=== PATIENT | male | born 1990 | race Two or more races ===

== ENCOUNTER 2023-06-10 10:51 | Outpatient (REF) | payer OTHER, SELFPAY ==
--- NOTE | ~2023-06-10 | XR_ITS ---
EXAMINATION: XR KNEE, RIGHT CLINICAL INFORMATION: Medial pain. COMPARISON: None available. TECHNIQUE: AP, lateral and tunnel views of the right knee are submitted. FINDINGS: No fracture or joint effusion. Alignment is anatomic. Joint spaces are maintained. No abnormal soft tissue calcification. XR/XR knee RT 3V IMPRESSION: Normal right knee.
== END 2023-06-10 10:52 | disposition home or self-care (01) ==
LOC: HO.HHCX 10:51
PROVIDERS: Visit Provider Internal Medicine
DX: M25.561 Pain in right knee (principal)
CPT/HCPCS: 73562

== ENCOUNTER 2023-07-20 12:03 | Outpatient (REF) | payer OTHER, SELFPAY ==
[2023-07-20 13:14] LABS: MANUAL DIFF FLAG NO
[2023-07-20 13:30] LABS: Basophils Percent Auto 0.5 % (0-2); Eosinophils Absolute Auto 0.1 X10*3/uL (0.0-0.4); Eosinophils Percent Auto 1.8 % (0-4); Hematocrit 41.3 % (42.0-52.0); Imm Gran Abs Auto 0.01 X10*3/uL (0.00-0.03); Imm Gran Pct Auto 0.2 % (0.0-0.4); Lymphocytes Absolute Auto 1.9 X10*3/uL (1.2-4.9); Lymphocytes Percent Auto 31.3 % (20-40); Mean Corpuscular HGB Conc 36.3 g/dl (31.0-36.0); Mean Corpuscular Hemoglobin 31.8 pg (27.0-33.0); Mean Corpuscular Volume 87.7 fL (80.0-98.0); Mean Platelet Volume 10.3 fL (9.4-12.4); Monocytes Absolute Auto 0.6 X10*3/uL (0.1-1.2); Monocytes Percent Auto 9.6 % (2-11); Neutrophils Absolute Auto 3.4 x10*3/uL (2.0-8.3); Neutrophils Percent Auto 56.6 % (45-73); Platelet Count 197 X10*3/uL (160-400); Red Blood Count 4.71 X10*6/uL (4.60-5.80)
[2023-07-20 13:58] LABS: Alanine Aminotransferase 17 U/L (0-40); Albumin Level 4.8 g/dL (3.5-5.0); Alkaline Phosphatase 56 U/L (39-117); Anion Gap 12 (12-20); Aspartate Amino Transferase 15 U/L (5-37); Bilirubin Direct 0.1 mg/dL (0.0-0.5); Bilirubin Total 0.5 mg/dL (0.0-1.0); Blood Urea Nitrogen 11 mg/dL (9-16); Calcium 10.1 mg/dL (8.4-10.2); Carbon Dioxide 30 mmol/L (22-29); Chloride 106 mmol/L (96-108); Cholesterol 162 mg/dL (<200); Estimated Glomerular Filt Rate > 60; Glucose Random 92 mg/dL (60-115); HDL Cholesterol 59 mg/dL (>40); LDL Cholesterol Calculated 97 mg/dL (<100); Potassium 4.2 mmol/L (3.3-5.1); Sodium 144 mmol/L (135-145); Total Protein 7.8 g/dL (6.5-8.0); Triglycerides 32 mg/dL (<150)
[2023-07-20 15:26] LABS: CT PCR NOT DETECTED (Not Detect.); NG PCR NOT DETECTED (Not Detect.)
[2023-07-21 04:30] LABS: HIV AB/AG Nonreactive (Nonreactive); HIV Num 1 0.06 S/CO (0.00-0.99); ~HepC Num1 0.13 S/CO (0.00-0.79); ~Hepatitis C Antibody Nonreactive (Nonreactive)
[2023-07-21 11:33] LABS: RPR Rapid Plasma Reagin NON-REACTIVE (NON-REACTIVE)
== END 2023-07-20 12:04 | disposition home or self-care (01) ==
LOC: HO.HHCL 12:03
PROVIDERS: Visit Provider Family Medicine
DX: F81.9 Developmental disorder of scholastic skills, unspecified (principal); Z20.2 Contact with and (suspected) exposure to infections with a predominantly sexual mode of transmission
CPT/HCPCS: 0353U; 36415; 80048; 80061; 80076; 85025; 86592; 86803; 87389

== ENCOUNTER 2023-10-04 11:09 | Outpatient (AMB) | payer MEDICAID, SELFPAY ==
--- NOTE | 2023-10-04 11:12 | A.OFFVIS_ITS ---
Intake Visit Reasons: New Pt - Right Knee Pain Intake Note: Krystian a 32 year old male who presents today with his girlfriend as a new patient for an evaluation of right knee pain. Patient reports his pain has been present since November of 2022, however his pain has increased since June. Denies injury. 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 He was attending PT however this has not been helping. States his pain is located around his kneecap and bruising will appear making his pain worse. He has swelling with activity. Finds very little to temporary relief with topical Diclofenac and Tylenol. Currently he has been out of work since June on FMLA due to current work restrictions. Allergies No Known Allergies Allergy (Verified 10/04/23 11:36) HPI HPI New Pt - Right Knee Pain: Details: 32-year-old male who presents to the office today with his girlfriend for evaluation of right knee pain since November 2022 however his pain worsened since June 2023. He states he has worsening pain around his kneecap and bruising in his knee. He also reports locking in his knee as well as swelling with activities. He has attended physical therapy without benefits. He finds minimal relief with topical diclofenac and Tylenol. He has not had any injury in the past. 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 He is curren anna out of work since June on [place] due to current work restrictions. 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 Review of Systems Const All systems reviewed & are unremarkable except as noted in HPI and below Physical Exam Const General: cooperative, healthy appearing, comfortable, no acute distress, well developed and alert Orientation/consciousness: patient oriented x3 HEENT Head: Yes normal to inspection, Yes normocephalic and Yes atraumatic Eyes General: appearance normal, both eyes and all related structures Resp Effort & Inspection: normal respiratory effort and able to speak in complete sentences Cardio Rate: regular rate Peripheral pulses: Peripheral pulses 2+ throughout GI Palpation (GI): Soft to palpation Skin Lesions: no lesions Rashes: no rashes Neuro General: patient oriented x3 Extrem Other: Right knee: Skin intact, no erythema or joint effusion. Tenderness along the medial joint line. Full ROM with crepitus. Positive Morgan?s. No ligamentous laxity. NVI. Results Reviewed Results Reviewed: Xrays were obtained in the office today and personally reviewed by me of the right knee are negative for acute fracture or dislocations. Assessment & Plan Assessment & Plan (1) Internal derangement of knee: Code(s): M23.90 - Unspecified internal derangement of unspecified knee Category: Medical Qualifiers: Laterality: right Qualified Code(s): M23.91 - Unspecified internal derangement of right knee (2) Right knee pain: Code(s): M25.561 - Pain in right knee Category: Medical Plan Patient was given a genumed knee brace in the office today to help with support. An MRI of the right knee was ordered to further evaluate the meniscus. He will continue to remain out of work untill his follow-up and see us back once the scan is complete. Orders: Orders XR knee LT 2V Today M25.562 - Pain in left knee MR knee RT wo con Today M23.90 - Unspecified internal derangement of unspecified knee, M25.561 - Pain in right knee XR knee RT 1V Today M25.561 - Pain in right knee Patient Instructions: Scribed for Disha Lee PA-C, by Lane Connors medical management specialist, on 10/04/2023 at 11:00 AM EST.? I, Disha Lee PA-C, have personally reviewed and agree with the information entered by the scribe. Coding Level of Care Code New Pt Level 3 (13327) Diagnoses Internal derangement of right knee M23.91 Laterality: right Right knee pain M25.561
== END 2023-10-04 12:50 | disposition home or self-care (01) ==
PROVIDERS: PCP Family Medicine; Visit Provider Physician Assistant
DX: M23.91 Unspecified internal derangement of right knee (principal); M25.561 Pain in right knee
CPT/HCPCS: 99204

== ENCOUNTER 2023-10-04 15:28 | Outpatient (REF) | payer OTHER, SELFPAY ==
--- NOTE | ~2023-10-04 | XR_ITS ---
EXAMINATION: XR KNEE, STANDING BILATERAL AND SUNRISE RIGHT CLINICAL INFORMATION: Pain in right knee, pain in left knee. COMPARISON: 06/10/2023 Right knee. TECHNIQUE: AP standing view of bilateral knees as well as a sunrise view of the right knee. FINDINGS: AP standing view of the right knee and sunrise view of the right knee: Mild narrowing of the medial compartment with minimal medial marginal osteophytes. Patellofemoral joint maintains on the sunrise view of the right knee. AP sunrise view of the left knee: Minimal narrowing of the medial compartment. XR/XR knee RT 1V IMPRESSION: Mild degenerative changes right knee.
--- NOTE | ~2023-10-04 | XR_ITS ---
EXAMINATION: XR KNEE, STANDING BILATERAL AND SUNRISE RIGHT CLINICAL INFORMATION: Pain in right knee, pain in left knee. COMPARISON: 06/10/2023 Right knee. TECHNIQUE: AP standing view of bilateral knees as well as a sunrise view of the right knee. FINDINGS: AP standing view of the right knee and sunrise view of the right knee: Mild narrowing of the medial compartment with minimal medial marginal osteophytes. Patellofemoral joint maintains on the sunrise view of the right knee. AP sunrise view of the left knee: Minimal narrowing of the medial compartment. XR/XR knee LT 2V IMPRESSION: Mild degenerative changes right knee.
== END 2023-10-04 15:29 | disposition home or self-care (01) ==
LOC: HO.HOSX 15:28
PROVIDERS: Visit Provider Physician Assistant
DX: M25.561 Pain in right knee (principal); M23.91 Unspecified internal derangement of right knee; M25.562 Pain in left knee
CPT/HCPCS: 73560; 99212

== ENCOUNTER 2023-10-24 14:08 | Outpatient (AMB) | payer OTHER, SELFPAY ==
--- NOTE | 2023-10-24 14:39 | A.OFFVIS_ITS ---
Intake Visit Reasons: OV- MRI Review RT knee Intake Note: Krystian a 32 year old male who presents today for an MRI review of right knee. Patient reports his symptoms have not changed, he continues to have ongoing pain. States knee brace has helped. Allergies No Known Allergies Allergy (Verified 10/24/23 14:42) Medication List - Last Reconciled 10/24/23 by Disha Lee PA-C acetaminophen 500 mg PO Q6H PRN celecoxib (Celebrex) 200 mg PO BID 30 days diclofenac sodium 1% topical BID HPI HPI OV- MRI Review RT knee: Details: 32-year-old male who returns to the office today for an MRI review of right knee. He states he has no change in his symptoms and continues to have ongoing pain in his knee. His pain is aggravated with movement of his knee. He has been using a knee brace and working on physical therapy with benefits. He finds mild relief with Tylenol. He has no other concerns today. 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 Review of Systems Const All systems reviewed & are unremarkable except as noted in HPI and below Physical Exam Const General: cooperative, healthy appearing, comfortable, no acute distress, well developed and alert Orientation/consciousness: patient oriented x3 HEENT Head: Yes normal to inspection, Yes normocephalic and Yes atraumatic Eyes General: appearance normal, both eyes and all related structures Resp Effort & Inspection: normal respiratory effort and able to speak in complete sentences Cardio Rate: regular rate Peripheral pulses: Peripheral pulses 2+ throughout GI Palpation (GI): Soft to palpation Skin Lesions: no lesions Rashes: no rashes Neuro General: patient oriented x3 Extrem Other: Right knee: Skin intact, no erythema or joint effusion. Tenderness along the medial joint line. Full ROM with crepitus. Positive Morgan?s. No ligamentous laxity. NVI. Results Reviewed Results Reviewed: Assessment & Plan Assessment & Plan (1) Iliotibial band syndrome of right side: Code(s): M76.31 - Iliotibial band syndrome, right leg Category: Medical Plan I did stress the importance of working on physical therapy and taking his anti- inflammatories regularly for the next 3 weeks. I did sent Celebrex to his pharmacy and an order was placed today. He will modify activities as much as possible to avoid irritation to the anterior portion of the knee. He will remain out of work for 4 weeks so that he can successfully work on managing his symptoms while working on physical therapy. He will return in 4 weeks with no restrictions, sooner if needed. Orders: Orders 2 PT Evaluation and Treatment Today M76.31 - Iliotibial band syndrome, right leg Medications: New 2 celecoxib (Celebrex) 200 mg PO BID 60 caps 3RF 30 days Patient Instructions: Scribed for Disha Lee PA-C, by Lane Connors, clinical medical transcriptionist, on 10/24/2023 at 2:15 PM EST.? I, Disha Lee PA-C, have personally reviewed and agree with the information entered by the scribe. Coding Level of Care Code Est Pt Level 3 (13338) Diagnoses Iliotibial band syndrome of right side M76.31
== END 2023-10-24 15:11 | disposition home or self-care (01) ==
PROVIDERS: PCP Family Medicine; Visit Provider Physician Assistant
DX: M76.31 Iliotibial band syndrome, right leg (principal)
CPT/HCPCS: 99213

== ENCOUNTER → 2023-10-24 14:08 | Outpatient (BNVA) | payer OTHER, SELFPAY | PROVIDERS: PCP Family Medicine; Visit Provider Physician Assistant | DX: M76.31 Iliotibial band syndrome, right leg (principal) | CPT/HCPCS: 99212 ==

== ENCOUNTER 2024-02-09 14:05 | Outpatient (AMB) | payer MEDICAID, SELFPAY ==
--- NOTE | 2024-02-09 14:19 | MHC.OFFVIS ---
Vital Signs 02/09/24 14:22 Height 5 ft 11 in Weight 200 lb BMI 27.9 Intake Visit Reasons: OV-Right Knee Pain-Follow up Intake Note: Krystian a 33 year old male who presents today for a follow up of right knee pain. Patient reports having some improvement in his knee pain however he continues to have pain. He was discharged from PT as this was not helping. He continues to do at home exercises. Finds temporary relief with icy hot topical cream. His PCP suggested he discontinue Celebrex due to abdominal pain. Allergies No Known Allergies Allergy (Verified 02/09/24 14:26) Medication List - Last Reconciled 02/09/24 by Disha Lee PA-C acetaminophen 500 mg PO Q6H PRN celecoxib (Celebrex) 200 mg PO BID 30 days diclofenac sodium 1% topical BID HPI HPI OV-Right Knee Pain-Follow up: Details: 33-year-old male who returns to the office today for a follow-up of right knee pain. He states he has improvement however she continues to have pain in her right knee that is aggravated with going upstairs, lying down and standing. He also reports he has popping sensation with applying pressure for too long. He was working with however he was discharged as this was not helping. He continues to work on home exercises for his knee. He finds transient relief with icy hot and hot topical cream. He was seen by his PCP who suggested he discontinue Celebrex as he had abdominal pain. 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 Review of Systems Const All systems reviewed & are unremarkable except as noted in HPI and below Physical Exam Vital Signs: BMI result Body Mass Index 27.9 Const General: cooperative, healthy appearing, comfortable, no acute distress, well developed and alert Orientation/consciousness: patient oriented x3 HEENT Head: Yes normal to inspection, Yes normocephalic and Yes atraumatic Eyes General: appearance normal, both eyes and all related structures Resp Effort & Inspection: normal respiratory effort and able to speak in complete sentences Cardio Rate: regular rate Peripheral pulses: Peripheral pulses 2+ throughout GI Palpation (GI): Soft to palpation Skin Lesions: no lesions Rashes: no rashes Neuro General: patient oriented x3 Extrem Other: Right knee: Skin intact, no erythema or joint effusion. Tenderness along the medial joint line. Full ROM with crepitus. Positive Morgan?s. No ligamentous laxity. NVI. Office Procedures Joint Injection/Aspiration Joint Injection/Aspiration Primary Site: right knee Prep: site was prepped using aseptic technique, ethochloride spray was applied and injection warnings given Injected: 80 mg of, DepoMedrol, with 8 mL of, 1% plain lidocaine and in the joint Approach Used: anterolateral Procedure: The patient tolerated the procedure well and there was some relief with the local anesthesia Coding 05606 - Glenohumeral/Tronchanteric Bursa/Intraarticular Procedure code (CPT) selection complete Assessment & Plan Assessment & Plan (1) Iliotibial band syndrome of right side: Code(s): M76.31 - Iliotibial band syndrome, right leg Category: Medical Plan We discussed options today, which include steroid injection. The patient did consent to move forward with the right knee injection, which was tolerated well. I recommended rest, ice, and elevation and OTC anti-inflammatories as needed for discomfort. If symptoms persist or worsen over the next 6-8 weeks, patient will contact the office, otherwise follow-up as needed. Patient Instructions: Scribed for Disha Lee PA-C, by Lane Connors medical observer, on 02/09/2024 at 2:15 PM EST.? I, Disha Lee PA-C, have personally reviewed and agree with the information entered by the scribe. Coding Level of Care Code Est Pt Level 3 (54182) Complex EM visit Add On G2211 Diagnoses Iliotibial band syndrome of right side M76.31 CPT Codes Coding - Joint 7: 02579 - Glenohumeral/Tronchanteric Bursa/Intraarticular ([id number])
[2024-02-09 14:22] VITALS: BMI 27.9
== END 2024-02-09 15:09 | disposition home or self-care (01) ==
PROVIDERS: PCP Family Medicine; Visit Provider Physician Assistant
DX: M25.561 Pain in right knee (principal); M76.31 Iliotibial band syndrome, right leg
CPT/HCPCS: 20610; 99213

== ENCOUNTER → 2024-02-09 14:05 | Outpatient (BNVA) | payer MEDICAID, SELFPAY | PROVIDERS: PCP Family Medicine; Visit Provider Physician Assistant | DX: M25.561 Pain in right knee (principal); M76.31 Iliotibial band syndrome, right leg | CPT/HCPCS: 20610; 99212; J1010; J2003 ==

== ENCOUNTER 2024-06-19 15:57 | Emergency (ER) | payer MEDICAID, SELFPAY ==
--- NOTE | ~2024-06-19 | XR_ITS ---
CLINICAL HISTORY: knee pain 4 views right knee Comparison: None Findings: No fractures or dislocations. No joint effusion. No soft tissue calcifications. No significant arthritic change. No radiopaque foreign body. Impression: Normal right knee This document has been electronically signed by: Pietro Worthington MD on 06/19/2024 18:18:45
[2024-06-19 17:02] VITALS: BP 122/77; PULSE 61; RESP 16; TEMP 36.4; O2SAT 98; BMI 23.0
--- NOTE | 2024-06-19 17:06 | ED.GENADULT ---
HPI - General Adult General Chief complaint: Extremity Injury, Lower Stated complaint: R knee pain History of Present Illness HPI narrative: Patient left before completion of treatment by ED provider Related Data Home Medications ?Medication ?Instructions ?Recorded ?Confirmed acetaminophen 500 mg tablet 500 mg PO Q6H PRN 10/04/23 02/09/24 diclofenac sodium 1 % topical gel topical BID 10/04/23 02/09/24 Previous Rx's ?Medication ?Instructions ?Recorded celecoxib 200 mg capsule (Celebrex) 200 mg PO BID 30 days #60 caps 11/16/23 ibuprofen 800 mg tablet 800 mg PO Q8H PRN pain 30 days #90 02/29/24 tabs Allergies Allergy/AdvReac Type Severity Reaction Status Date / Time No Known Allergies Allergy Verified 06/19/24 17:03 PMF Social History Social History Patient Tobacco Use Status: Never used Tobacco Substance Use Type: Marijuana Advance Directives: No Advance Directives Information Provided: No Do you have a plan to hurt others: No Plan Current occupational status: employed 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 Patient states pmh of chronic knee pain. steroid shots in knee the past. Denies any swelling, redness, calf pain, fever, or chills. xray ordere Discharge Plan Discharge Clinical Impression: Chronic knee pain Patient Disposition: Left W/O Completing Treatment Prescriptions: No Action celecoxib [Celebrex] 200 mg capsule 200 mg PO BID 30 Days Qty: 60 3RF ibuprofen 800 mg tablet 800 mg PO Q8H PRN (Reason: pain) 30 Days Qty: 90 3RF diclofenac sodium 1 % gel topical BID acetaminophen 500 mg tablet 500 mg PO Q6H PRN Discharge Date/Time: 06/19/24 20:48
--- OUTSIDE RECORDS SUMMARY | 2024-06-19 20:36 | XMS_ITS | Encounter Summary ---
Author Organization [employer] Address [address] [place] [address] Care Team Providers Care Inspector Finishing Name Role Phone Katey Becker MD Primary Care Provider [phone]- [phone] Encounter Details Date Type Department Care Team (Late st Contact Info) Description 06/19/2024 Orders Only [facility] External Provider, [facility] Social History Tobacco Use Types Packs/Day Years Used Date Smoking Tobacco: Never Smokeless Tobacco: Never Alcohol Use Standard Drinks/Week Comments Not Currently 0 (1 standard drink = 0.6 oz pur e alcohol) rare Housing Stability Answer Date Recorded What is your housing situation today? I have bianca jordan 06/10/[address] you li ve. Do you have problems with any of the following? None of the above 06/10/2023 Food Insecurity Answer Date Recorded Within the past 12 months, y ou worried that your food would run out before you got money to buy more: Never True 06/10/2023 Within the past 12 months,th e food you bought just didn't last and you didn't have enough money to get more: Never True 06/2023 Transportation Answer Date Recorded In the past 12 months, has l ack of transportation kept you from medical appts, meetings, work or from getting things needed for daily living? No 06/10/2023 Utilities Answer Date Recorded In the past 12 months, has t he electric, gas, oil or water company threatened to shut off services in your home? No 06/10/2023 Depression Answer Date Recorded Patient Health Questionnaire-2 Score 0 06/10/2023 Internet Access Answer Date Recorded Internet Access Q1 Yes 01/09/2024 Internet Access Q2 Not on file 01/09/2024 Sex and Gender Information Value Date Recorded Sex Assigned at Male 03/08/2022 10:19 AM EDT Legal Sex Male 10:19 AM EDT Gender Identity Male 03/08/2022 10:19 AM EDT Sexual Orientation Choose not to disclose 2021 10:19 AM EDT documented as of this encounter Plan of Treatment Not on file documented as of this encounter Procedures Procedure Name Priority Date/Time Associated Diagnosis Comments XR KNEE 4+ VIEWS RIGHT Routine 06/19/2024 6:18 PM EST documented in this encounter Results * XR Knee 4+ Views Right (06/19/2024 6:18 PM EST) Anatomical Region Laterality Modality Lower Extremities, Knee Right [facility] 06/19/2024 6:18 PM EST Narrative 06/19/2024 6:20 PM EST ? [facility] ?[address] ?[place] [address] ?XRay Report ? Signed ? Patient: Krystian Jackson ?MR#: [id number] ?? 50 ? : 1990 ?Acct:[id number] ? Age/Sex: 33 / M ?ADM Date: 06/19/24 ? Loc: HO.ED ? Attending Dr: ? Ordering Physician: Jarrett Patterson ?? Date of Service: 06/19/24 ?? Procedure(s): XR knee RT 4V ?? Accession Number(s): [id number] ? cc: Jarrett Patterson; Katey Becker MD ? CLINICAL HISTORY: knee pain ? 4 views right knee ? Comparison: None ? Findings: ?? No fractures or dislocations. No joint effusion. ?? No soft tissue calcifications. ?? No significant arthritic change. No radiopaque foreign body. ? Impression: ?? Normal right knee ? This document has been electronically signed by: Pietro Worthington MD on ?? 06/19/2024 18:18:45 ? Dictated By: ?Pietro Worthington MD ? Signed By: ?<Electronically signed by Pietro Worthington MD in OV> ?06/19/24 1819 ? DD/ 17 ? TD/TT: 06/19/241817 ? Product Safety Professional: ? Procedure Note Esthela, Image - 06/19/2024 [facility] [address] [place] [address] XRay Report Signed Patient: Sunitha JacksonR#: [id number] 50 : 1990Acct:[id number] Age/Sex: 33 / MADM Date: 06/19/24 Loc: HO.ED Attending Dr: Ordering Physician: Jarrett Patterson Date of Service: 06/19/24 Procedure(s): XR knee RT 4V Accession Number(s): [id number] cc: Jarrett Patterson; Katey Becker MD CLINICAL HISTORY: knee pain 4 views right knee Comparison: None Findings: No fractures or dislocations. No joint effusion. No soft tissue calcifications. No significant arthritic change. No radiopaque foreign body. Impression: Normal right knee This document has been electronically signed by: Pietro Worthington MD on 06/19/2024 18:18:45 Dictated By: Pietro Worthington MD Signed By: <Electronically signed by Pietro Worthington MD in OV> 06/19/241818 DD/ 17 TD/TT: 06/19/241817 Product Safety Professional: [facility] External Provider IMG XR PROCEDURES Final Result documented in this encounter Visit Diagnoses Not on filedocumented in this encounter Care Teams Inspector Finishing Relationship Specialty Start Date End Date Katey Becker MD [address] [place] [address] PCP - General Family Medicine 05/09/18 documented as of this encounter
--- OUTSIDE RECORDS SUMMARY | 2024-06-19 20:36 | XMS_ITS | Encounter Summary ---
Author Organization [employer] Address [address] [place] [address] Care Team Providers Care Bass Guitar Teacher Name Role Phone Katey Becker MD Primary Care Provider [phone]- [phone] Reason for Visit * Reason Onset Date Comments Nurse Triage 05/31/2023 Encounter Details Date Type Department Care Team (Late st Contact Info) Description 05/31/[address] [facility] MEDICINE [address] [place] [address] [phone] Katey Becker MD [address] [place], [place] [phone] Nurse Triage Social History Tobacco Use Types Packs/Day Years Used Date Smoking Tobacco: Never Assessed Sex and Gender Information Value Date Recorded Sex Assigned at Male 03/08/2022 10:19 AM EDT Legal Sex Male 10:19 AM EDT Gender Identity Male 03/08/2022 10:19 AM EDT Sexual Orientation Choose not to disclose 2021 10:19 AM EDT documented as of this encounter Miscellaneous Notes * Telephone Encounter - Roxana Ornelas RN - 05/31/2023 2:51 PM EST Triage call Pt requests friend Rahel almeida while Pt is near. Pt reports injury to right knee which happened several months ago. On 05/27/23 Pt reports reinjury to that knee. Pt did go to urgent care, [facility] on 05/29/23. Will request this report. Pt was given prescription for diclofenac and advised to obtain apt with PCP for further evaluation such as MRI . Pt reports has a very active job where bending is constant. Pt reports since the injury a popping sound occurs with bending the knee. Pt describes the knee as swollen, red, warm and painful by the endof a work day. Pt has been using knee brace, ice, heat and elevation while not working. Pt is advised not to take motrin for pain due to the diclofenac only tylenol. Apt with Dr Ware 06/10/23 at 915am. Pt agrees with disposition and home care reviewed. Pt is requesting an apt on Fridays only. Insurance is verified as active prior to booking. Protocol Used: Knee Injury (Adult) Protocol-Based Disposition: See in Office or Video Visit within 3 Days Override (Final) Disposition: See in Office or Video Visit within 2 Weeks Override Reason: No appointments available Override Notes: requests apt only Fridays Positive Triage Question: * Injury is still painful or swollen after 2 weeks * All higher-acuity triage questions were negative Care Advice Discussed: * Reassurance and Education - Bending or Twisting Injury (Strain, Sprain) * Use a Cold Pack for Pain, Swelling, or Bruising * Use Heat on Area After 48 Hours * Wrap With an Elastic Bandage * Elevate the Leg * Rest vs. Movement * Expected Course * Reasons To Call Back - Pain becomes severe - Pain does not improve after 3 days - Pain or swelling lasts more than 2 weeks - You become worse * Telephone Encounter - Asya Ochoa - 05/31/2023 2:15 PM EST Symptom: Knee Injury from work Outcome: Talk to a nurse or provider within 15 minutes Reason: Severe pain now The caller accepted this outcome Please contact pt at [phone] (Hebrew) documented in this encounter Plan of Treatment Not on file documented as of this encounter Visit Diagnoses Not on filedocumented in this encounter Care Teams Bass Guitar Teacher Relationship Specialty Start Date End Date Katey Becker MD [address] [place] [address] PCP - General Family Medicine 05/09/18 documented as of this encounter
--- OUTSIDE RECORDS SUMMARY | 2024-06-19 20:36 | XMS_ITS | Clinical Summary ---
Author Organization [facility] [employer] Address [address] [facility] 7t [place] [address] Care Team Providers Care Caterers Helper Name Role Phone Katey Becker MD Primary Care Provider +1- [phone] Allergies No known active allergies Medications albuterol (ProAir HFA) 108 (90 Base) MCG/ACT inhaler inhale 2 puff by inhalation route every 4 hours as needed for shortness of breath 2 Active Diclofenac Sodium 1 % gelIndications: Acute pain of right knee APPLY 2 GRAM TOPICALLY IN THE MORNING AND BEDTIME IF NEEDED FOR PAIN 100 g 4 Active celecoxib (CeleBREX) 200 MG capsuleIndicati ons:Chronic pain of right knee Take 200 mg by mouth 2 times daily. 4 Active Active Problems Problem Noted Date Diagnosed Date Chronic pain of right knee 07/20/2023 Overview (02/09/2024): Pain ongoing since November of 2022 but increased pain Jun 2023. Denies injury. 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 -No improvement after several months of physical therapy -XR right knee 06/10/23: Normal right knee -Seen by [facility], Eddie-Rdaha Lee PA-C, 10/04/23 Patient was given a genumed knee brace iris help with support. An MRI of the rightknee was ordered . -MRI 10/15/23 small knee joint effusion. 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 -Seen by Eddie Barrios of [facility] 10/24/23 , diagnosed with iliotibial band syndrome on the right. Recommended physical therapy, NSAIDS (celebrex) notes states out of work 4 weeks which would be 11/23/23 -Seen by ortho 02/09/24 The patient did consent to move forward with the right knee injection, which was tolerated well. Assessment & Plan (11/24/2023 10:34 AM EDT): Pain ongoing since November of 2022 but increased pain Jun 2023. Denies injury. 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 -No improvement after several months of physical therapy -XR right knee 06/10/23: Normal right knee -Seen by [facility], Eddie-Radha Lee PA-C, 10/04/23 Patient was given a genumed knee brace iris help with support. An MRI of the rightknee was ordered . -MRI 10/15/23 small knee joint effusion. 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 -Seen by Eddie Barrios of [facility] 10/24/23 , diagnosed with iliotibial band syndrome on the right. Recommended physical therapy, NSAIDS (celebrex) notes states out of work 4 weeks which would be 11/23/23 Assessment & Plan (09/16/2023 10:23 AM EDT): Normal right knee. Assessment & Plan (07/20/2023 5:04 PM EDT): -Referral to PT for knee pain -Advised patient to take rest from work for 3 weeks -return if symptoms worsen or do not improve Hearing loss of left ear 03/18/2023 023 Mild intermittent asthma 03/18/2023 023 Overview (11/24/2023): Well controlled, has not used Albuterol in years. Assessment & Plan (11/24/2023 11:45 AM EDT): Well controlled, has not used Albuterol in years. Preventative health care 03/18/2023 Overview (11/24/2023): -next physical exam due after 07/19/2024 -eye care facilitated by [facility] -dental home is [facility] - Healthcare Proxy file 11/24/2023 Assessment & Plan (11/24/2023 10:59 AM EDT): -next physical exam due after 07/19/2024 -eye care facilitated by [facility] -dental home is [facility] - Healthcare Proxy file 11/24/2023 Assessment & Plan (07/20/2023 11:29 AM EDT): -next physical exam due after 07/19/2024 -eye care facilitated by -dental home is [facility] 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 03/18/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 08/15/2013 03/18/2023 Encounters Date Type Department Care Team Description 06/19/2024 Orders Only [facility] External Provider, [facility] 04/10/2024 Telephone [facility] [address] [place] [phone] Katey Becker MD Appointment Request from Last 3 Months Immunizations Name Administration Dates Next Due DTaP 10/15/2005, 6,08/23/1995,02/05,03/31/1993,1991 HPV 9-Valent 08/12/2016,06/14/2016 Hep B, Adolescent or Pediatric 02/05/1995,1992,1991 Hib (HbOC) 12/09/1995, 6,03/31/1993,12/25 IPV 12/09/1995, 5,03/31/1993,12/25 Influenza injectable quadriv alent IIV4 with preservative 02/23/2018,03/15/2016,06/12/2015 Influenza injectable quadriv alent preservative free 03/01/2019 Influenza, IIV3, injectable 02/06/2014, 8 MMR 10/25/1995,03/31/1993 Meningococcal MPSV4 05/17/2007 Pfizer Covid-19 Vaccine 12+ 07/20/2023,,03/05/2021 Pneumococcal Conjugate PCV 20 07/20/2023 Tdap 06/12/2015 Varicella 04/20/2007,03/21/2007 Social History Tobacco Use Types Packs/Day Years Used Date Smoking Tobacco: Never Smokeless Tobacco: Never Tobacco Cessation:Counseling Given: Not Answered Alcohol Use Standard Drinks/Week Comments Not Currently [...] not to disclose 2021 10:19 AM EDT Last Filed Vital Signs Vital Sign Reading Time Taken Comments Blood Pressure 138/82 11/24/2023 10:08 AM EDT Pulse 75 11/24/2023 10:08 AM EDT Temperature 37.2 ??C (98.9 ??F) 11/24/2023 10:08 AM E DT Respiratory Rate 20 11/24/2023 10:08 AM EDT Oxygen Saturation 94% 11/24/2023 10:08 AM EDT Inhaled Oxygen Concentration - - Weight 90.7 kg (200 lb) 11/24/2023 10:08 AM EDT Height 177.8 cm (5' 10 ) 11/24/2023 10:08 AM EDT Body Mass Index 28.7 11/24/2023 10:08 AM EDT Plan of Treatment Health Maintenance Due Date Last Done Comments Alcohol/Substance Use Screening 2003 Family Planning (PISQ) 10/27/2006 HPV Vaccines (3 - Male 3-dose series) 12/12/2016 08/12/2016, 06/14/2016 COVID-19 Vaccine ( season) 2024 07/20/2023, 03/26/2021, 03/05/2021 Influenza Vaccine (#1) 2024 9, 02/23/2018, 03/15/2016, Additional history exists Depression Screening 06/10/2024 06/10/2023, 06/10/19 24 SDOH Screening 06/10/2024 06/10/2023 Tobacco Screening 11/23/2024 11/24/2023 DTaP/Tdap/Td Vaccines (7 - Td or Tdap) 06/12/2025 06/12/2015, 10/15/2005, 12/09/1995, Additional history exists Zoster Vaccines (1 of 2) 10/27/2041 RSV Patients and Patients Aged 60 years or older (1 - 1-dose 75+ series) 10/27/2066 Hepatitis B Vaccines Completed 02/05/1995, 03/31/1993, 1991 HIB Vaccines Completed 12/09/1995, 08/07, 03/31/1993, Additional history exists IPV Vaccines Completed 12/09/1995, 01/08, 03/31/1993, Additional history exists Meningococcal Vaccine Aged Out 05/17/2007 No ashley evi eligible based on patient's age to complete this topic HIV Screening Completed 07/20/2023, 03/01/2019 Hepatitis C Screening Completed 07/20/2023 Pneumococcal Vaccine: Pediatrics (0 to 5 Years) and At-Risk Patients (6 to 49) Years) Completed 07/20/2023 Hepatitis A Vaccines Aged Out No long er eligible based on patient's age to complete this topic RSV under 20 months Aged Out No longe r eligible based on patient's age to complete this topic Rotavirus Vaccines Aged Out No longer eligible based on patient's age to complete this topic Procedures Procedure Name Priority Date/Time Associated Diagnosis Comments XR KNEE 4+ VIEWS RIGHT Routine 06/19/2024 6:18 PM EST HEPATITIS C AB W/REFL TO HCV RNA, QN, PCR Routine 07/20/2023 12:06 PM EDT Routine screening for STI (sexually transmitted infection) HIV 1/2 ANTIGEN/ANTIBODY, FOURTH GENERATION W/RFL Routine 07/20/2023 12:06 PM EDT Routine screening for STI (sexually transmitted infection) from Last 3 Months or Most Recently Relevant to Health Maintenance Results * XR Knee 4+ Views Right (06/19/2024 6:18 PM EST) Anatomical Region Laterality Modality Lower Extremities, Knee Right Radiogra phic Imaging 06/19/2024 6:18 PM EST Narrative 06/19/2024 6:20 PM EST ? [facility] ?[address] ?[place] [address] ?XRay Report ? Signed ? Patient: Manuel,Krystian ?MR#: [id number] ?? 50 ? : 1990 ?Acct:[id number] ? Age/Sex: 33 / M ?ADM Date: 06/19/24 ? Loc: HO.ED ? Attending Dr: ? Ordering Physician: Jarrett Patterson ?? Date of Service: 06/19/24 ?? Procedure(s): XR knee RT 4V ?? Accession Number(s): [id number] ? cc: Jarrett Patterson; Katey Becker MD [...] signed by Pietro Worthington MD in OV> ?06/19/249 ? DD/ ? TD/TT: 06/19/24 1818 ? Jde Developer: ? Procedure Note Donotuseinterpreter, Image - 06/19/[address] [address] XRay Report Signed Patient: Irina JacksononyMR#: [id number] 50 : 1990Acct:[id number] Age/Sex: 33 / MADM Date: 06/19/24 Loc: .ED Attending Dr: Ordering Physician: Jarrett Patterson Date of Service: 06/19/24 Procedure(s): XR knee RT 4V Accession Number(s): [id number] cc: Jarrett Patterson; Katey Becker MD CLINICAL [...] in OV> 06/19/241818 DD/ 17 TD/TT: 06/19/241817 Jde Developer: [facility] External Provider IMG XR PROCEDURES Final Result * Hepatitis C Antibody with Reflex to HCV, RNA, Quantitative, Real-Time PCR (07/20/2023 12:06 PM EDT) Hepatitis C Antibody Nonreactive Nonreactive [facility] Comment:Antibodies to HCV no t detected; does not exclude early acuteHCV infection. Blood Venous blood specimen / Unknown 07/20/2023 12:06 PM EDT 07/20/2023 1:11 PM EDT Katey Becker MD LAB BLOOD ORDERABLES Final Result Performing Organization Address City/[facility]/ZIP Co de Phone Number [facility] [address] [place] [phone] * HIV-1/2 Antigen and Antibodies, Fourth Generation, with Reflexes (07/20/2023 12:06 PM EDT) HIV AB/AG Nonreactive Nonreactive [facility] Comment:HIV-1 p24 Ag and/or HIV-1/HIV-2 Ab not detected.A test result that is nonreactive does not exclude thepossibility of exposure to or infection with HIV-1 and/orHIV-2. Nonreactive results in this assay for individualswith prior exposure to HIV-1 and/or HIV-2 may be due toantigen and antibody levels that are below the limit ofdetection of this assay.The [employer] HIV Ag/Ab Combo assay result andsupplemental assay results should be interpreted inconjunction with the patient's clinical presentation,history and other laboratory results. If the results areinconsistent with clinical evidence, additional testing issuggested to confirm the result. 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
--- OUTSIDE RECORDS SUMMARY | 2024-06-19 20:36 | XMS_ITS | Encounter Summary ---
Author Organization [employer] [facility] Address [address] [facility] [address], [place] [address] Care Team Providers Care Threat Analyst Name Role Phone Katey Becker MD Primary Care Provider +1- [phone] Encounter Details Date Type Department Care Team (Latest Contact Info) Description 08/26/2021 Abstract [facility] CONVERSIONS Dental, Provider, DDS Social History Tobacco Use Types Packs/Day Years [...] on filedocumented in this encounter Care Teams Threat Analyst Relationship Specialty Start Date End Date Katey Becker MD [address] [place] [address] PCP - General Family Medicine 05/09/18 documented as of this encounter
== END 2024-06-19 20:48 | disposition left against medical advice (07) ==
LOC: HO.ED 20:34
PROVIDERS: Emergency Provider Emergency Medicine; PCP Family Medicine
DX: M25.561 Pain in right knee (principal); Z79.899 Other long term (current) drug therapy
CPT/HCPCS: 73564; 99281; 99283

== ENCOUNTER → 2024-06-19 17:05 | Outpatient (BNV) | payer MEDICAID, SELFPAY | PROVIDERS: PCP Family Medicine; Visit Provider Radiology Diagnostic Radiology | DX: M25.561 Pain in right knee (principal) | CPT/HCPCS: 73564 ==

== ENCOUNTER 2024-07-12 09:29 | Outpatient (AMB) | payer MEDICAID, SELFPAY ==
--- NOTE | 2024-07-12 09:35 | A.OFFVIS_ITS ---
Vital Signs 07/12/24 09:38 Height 5 ft 11 in Weight 165 lb BMI 23.0 Intake Visit Reasons: OV-RT knee pain f/u Intake Note: Krystian a 33 year old male who presents today for a follow up of right knee pain. Patient was last seen in office on 02/09/24 and an injection was given,states no relief and this increased his pain. Patient reports having a constant mild pain. Finds no relief with ibuprofen and Tylenol. Allergies No Known Allergies Allergy (Verified 07/12/24 09:38) Medication List - Last Reconciled 07/12/24 by Disha Lee PA-C acetaminophen 500 mg PO Q6H PRN ibuprofen 800 mg PO Q8H PRN 30 days HPI HPI OV-RT knee pain f/u: Details: 33 yo male returns to the office today for right knee pain s/p injection 02/09/24. He denies relief with the injection. He states he has attended physical therapy at [facility] and is also working on a home exercise program with minimal relief. 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 Review of Systems Const All systems reviewed & are unremarkable except as noted in HPI and below Physical Exam Vital Signs: BMI result Body Mass Index 23.0 Const General: cooperative, healthy appearing, comfortable, no acute distress, well developed and alert Orientation/consciousness: patient oriented x3 HEENT Head: Yes normal to inspection, Yes normocephalic and Yes atraumatic Eyes General: appearance normal, both eyes and all related structures Resp Effort & Inspection: normal respiratory effort and able to speak in complete se ntences Cardio Rate: regular rate Peripheral pulses: Peripheral pulses 2+ throughout GI Palpation (GI): Soft to palpation Skin Lesions: no lesions Rashes: no rashes Neuro General: patient oriented x3 Extrem Other: Right knee: Skin intact, no erythema or joint effusion. Tenderness along the medial joint line. Full ROM with crepitus. Positive Morgan?s. No ligamentous laxity. NVI. Assessment & Plan Assessment & Plan (1) Right patellofemoral syndrome: Code(s): M22.2X1 - Patellofemoral disorders, right knee Category: Medical Plan: I had a lengthy discussion with the patient and his partner about the extent of his condition. I feel as though based off his anatomy along with his MRI findings lot of this is simply patellofemoral symptoms and working with a good physical therapist to condition hip hamstrings quad and glute region he should regain function and be able to perform activities without limitations. He was fit for a Inderjit Pull stabilizing brace in the office today. If symptoms persist or worsen or there is any concerns he can contact our office otherwise follow up as needed. Coding Level of Care Code Est Pt Level 3 (79424) Complex EM visit Add On G2211 Diagnoses Right patellofemoral syndrome M22.2X1
[2024-07-12 09:38] VITALS: BMI 23.0
--- OUTSIDE RECORDS SUMMARY | 2024-07-12 10:45 | XMS_ITS | Encounter Summary ---
Author Organization [facility] Address [address] [facility] [address], [place] [address] Care Team Providers Care Precision Grinder External Name Role Phone Katey Becker MD Primary Care Provider +1- [phone] Encounter Details Date Type Department Care Team (Latest Contact Info) Description 08/26/2021 Abstract [facility] CONVERSIONS Dental, Provider, DDS Social History Tobacco [...] on filedocumented in this encounter Care Teams Precision Grinder External Relationship Specialty Start Date End Date Katey Becker MD [address] [place] [address] PCP - General Family Medicine 05/09/18 documented as of this encounter
--- OUTSIDE RECORDS SUMMARY | 2024-07-12 10:45 | XMS_ITS | Encounter Summary ---
Author Organization [employer] Address [address] [facility] 7t [place] [address] Care Team Providers Care Forestry Tree Pruner Name Role Phone Katey Becker MD Primary Care Provider +1- [phone] Reason for Visit * Reason Onset Date Comments Call Back Request 07/25/2023 Encounter Details Date Type Department Care Team ([facility] st Contact Info) Description 07/25/2023 Telephone [facility] [address] [place] [address] Katey Becker MD [address] [place], [place] [phone] Call Back Request Social History Tobacco Use Types Packs/Day Years [...] Recorded Patient Health Questionnaire-2 Score 0 06/10/2023 Sex and Gender Information Value Date Recorded Sex Assigned at Male 03/08/2022 10:19 AM EDT Legal Sex Male 10:19 AM EDT Gender Identity Male 03/08/2022 10:19 AM EDT Sexual Orientation Choose not to disclose 2021 10:19 AM EDT documented as of this encounter Miscellaneous Notes * Telephone Encounter - Asya Ochoa - 07/25/2023 2:05 PM EDT Tc from pt requesting to speak with a nurse in regards to 07/19 visit with provider. States was supposed to be given medication and cream. Pretzel Cooker does not see any new medication. Please contact pt at [phone] (Belarusian) documented in this encounter Plan of Treatment Not on file documented as of this encounter Visit Diagnoses Not on filedocumented in this encounter Care Teams Forestry Tree Pruner Relationship Specialty Start Date End Date Katey Becker MD [address] [place] [address] PCP - General Family Medicine 05/09/18 documented as of this encounter
--- OUTSIDE RECORDS SUMMARY | 2024-07-12 10:45 | XMS_ITS | Encounter Summary ---
Author Organization [employer] Address [address] [facility] [address] [place] [address] Care Team Providers Care Slate Handler Name Role Phone Katey Becker MD Primary Care Provider +1- [phone] Reason for Visit * Reason Onset Date Comments Nurse Triage 05/31/2023 Encounter Details Date Type Department Care Team (Late st Contact Info) Description 05/31/2023 Telephone [facility] [address] [place] [phone] Katey Becker MD [address] [place], [place] [phone] Nurse Triage Social History Tobacco Use Types [...] did go to urgent care, [facility] on 05/29/23. Will request this report. Pt [...] accepted this outcome Please contact pt at [phone] (Korean) documented in this encounter Plan of Treatment Not on file documented as of this encounter Visit Diagnoses Not on filedocumented in this encounter Care Teams Slate Handler Relationship Specialty Start Date End Date Katey Becker MD [address] [place] [address] PCP - General Family Medicine 05/09/18 documented as of this encounter
--- OUTSIDE RECORDS SUMMARY | 2024-07-12 10:45 | XMS_ITS | Encounter Summary ---
Author Organization [employer] Address [address] [facility] 7t [place] [address] Care Team Providers Care Plant Controller Name Role Phone Katey Becker MD Primary Care Provider +1- [phone] Encounter Details Date Type Department Care Team (Late st Contact Info) Description 06/19/2024 Orders Only [facility] External Provider, [facility] Social History Tobacco Use Types [...] Region Laterality Modality Lower Extremities, Knee Right [employer] [facility] [facility] 06/19/2024 6:18 PM EST Narrative 06/19/2024 6:20 PM EST ? [facility] ?[address] ?[place] [address] ?XRay Report ? Signed ? Patient: Krystian Jackson ?MR#: [id number] ?? 50 ? : 1990 ?Acct:[id number] ? Age/Sex: 33 / M ?ADM Date: 06/19/24 ? Loc: HO.ED ? Attending Dr: ? Ordering Physician: Jarrett Patterson ?? Date of Service: 06/19/24 ?? Procedure(s): XR knee RT 4V ?? Accession Number(s): [id number] ? cc: Jarrett Patterson; Katey Becker MD [...] ? DD/ 17 ? TD/TT: 06/19/241817 ? Operators School Manager: ? Procedure Note Esthela, Image - 06/19/2024 [facility] [address] [place] [address] XRay Report Signed Patient: Sunitha JacksonR#: [id number] 50 : 1990Acct:[id number] Age/Sex: 33 / MADM Date: 06/19/24 Loc: HO.ED Attending Dr: Ordering Physician: Jarrett Patterson Date of Service: 06/19/24 Procedure(s): XR knee RT 4V Accession Number(s): [id number] cc: Jarrett Patterson; Katey Becker MD CLINICAL [...] in OV> 06/19/241818 DD/ 17 TD/TT: 06/19/241817 Operators School Manager: [facility] External Provider IMG XR PROCEDURES Final Result documented in this encounter Visit Diagnoses Not on filedocumented in this encounter Care Teams Plant Controller Relationship Specialty Start Date End Date Katey Becker MD [address] [place] [address] PCP - General Family Medicine 05/09/18 documented as of this encounter
--- OUTSIDE RECORDS SUMMARY | 2024-07-12 10:45 | XMS_ITS | Clinical Summary ---
Author Organization [employer] Address [address] [facility] [address] [place] [address] Care Team Providers Care Machine Brusher Name Role Phone Katey Becker MD Primary Care Provider [phone]- [phone] Allergies No known active allergies Medications albuterol [...] knee 06/10/23: Normal right knee -Seen by [facility], Eddie-Radha Lee PA-C, 10/04/23 Patient was given a genumed knee brace iris help with support. An MRI of the rightknee was ordered . -MRI 10/15/23 small knee joint effusion. 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 An MRI of the rightknee was ordered . -MRI 10/15/23 small knee joint effusion. 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 -Seen by Eddie Barrios of [facility] 10/24/23 , diagnosed with iliotibial band [...] after 07/19/2024 -eye care facilitated by [facility] -dental home is [facility] Proxy file 11/24/2023 Assessment & Plan (11/24/2023 10:59 AM EDT): -next physical exam due after 07/19/2024 -eye care facilitated by [facility] -dental home is [facility] Proxy file 11/24/2023 Assessment & Plan (07/20/2023 11:29 AM EDT): -next physical exam due after 07/19/2024 -eye care facilitated by -dental home is [facility] 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 03/18/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 08/15/2013 03/18/2023 Encounters Date Type Department Care Team Description 06/19/2024 Orders Only [facility] External Provider, [facility] from Last 3 Months Immunizations Name Administration Dates Next Due DTaP 10/15/2005, 6,08/23/1995,02/05,03/31/1993,1991 HPV 9-Valent 08/12/2016,06/14/2016 Hep B, Adolescent or Pediatric 02/05/1995,1992,1991 Hib (HbOC) 12/09/1995, 6,03/31/1993,12/25 IPV 12/09/1995, 5,03/31/1993,12/25 Influenza injectable quadriv alent IIV4 with preservative 02/23/2018,03/15/2016,06/12/2015 Influenza injectable quadriv alent preservative free 03/01/2019 Influenza, IIV3, injectable 02/06/2014, 8 MMR 10/25/1995,03/31/1993 Meningococcal MPSV4 05/17/2007 Pfizer Covid-19 Vaccine 12+ 07/20/2023, 1,03/05/2021 Pneumococcal Conjugate PCV 20 07/20/2023 Tdap 06/12/2015 [...] EST Narrative 06/19/2024 6:20 PM EST ? [facility] ?[address] ?[place] [address] ?XRay Report ? Signed ? Patient: Krystian Jackson ?MR#: [id number] ?? 50 ? : 1990 ?Acct:[id number] ? Age/Sex: 33 / M ?ADM Date: 06/19/24 ? Loc: HO.ED ? Attending Dr: ? Ordering Physician: Jarrett Patterson ?? Date of Service: 06/19/24 ?? Procedure(s): XR knee RT 4V ?? Accession Number(s): [id number] ? cc: Jarrett Patterson; Katey Becker MD [...] signed by Pietro Worthington MD in OV> ?06/19/241818 ? DD/ ? TD/TT: 06/19/248 ? Business Systems Technician: ? Procedure Note Donotanater, Image - 06/19/2024 [facility] [address] [place] [address] XRay Report Signed Patient: Irina JacksononyMR#: [id number] 50 : 1990Acct:[id number] Age/Sex: 33 / MADM Date: 06/19/24 Loc: HO.ED Attending Dr: Ordering Physician: Jarrett Patterson Date of Service: 06/19/24 Procedure(s): XR knee RT 4V Accession Number(s): [id number] cc: Jarrett Patterson; Katey Becker MD CLINICAL [...] in OV> 06/19/241818 DD/ 17 TD/TT: 06/19/241817 Business Systems Technician: [facility] External Provider IMG XR PROCEDURES Final Result * Hepatitis C Antibody with Reflex to HCV, RNA, Quantitative, Real-Time PCR (07/20/2023 12:06 PM EDT) Hepatitis C Antibody Nonreactive Nonreactive [facility] Comment:Antibodies to HCV no t detected; does not exclude early acuteHCV infection. Blood Venous blood specimen / Unknown 07/20/2023 12:06 PM EDT 07/20/2023 1:11 PM EDT Katey Becker MD LAB BLOOD ORDERABLES Final Result [facility] [address] [place] [address] [phone] * HIV-1/2 Antigen and Antibodies, Fourth Generation, with Reflexes (07/20/2023 12:06 PM EDT) HIV AB/AG Nonreactive Nonreactive [facility] Comment:HIV-1 p24 Ag and/or HIV-1/HIV-2 Ab not detected.A test result that is nonreactive does not exclude thepossibility of exposure to or infection with HIV-1 and/orHIV-2. Nonreactive results in this assay for individualswith prior exposure to HIV-1 and/or HIV-2 may be due toantigen and antibody levels that are below the limit ofdetection of this assay.The [employer] HIV Ag/Ab Combo assay result andsupplemental assay results should be interpreted inconjunction with the patient's clinical presentation,history and other laboratory results. If the results areinconsistent with clinical evidence, additional testing issuggested to confirm the result. 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
== END 2024-07-12 10:28 | disposition home or self-care (01) ==
PROVIDERS: PCP Family Medicine; Visit Provider Physician Assistant
DX: M22.2X1 Patellofemoral disorders, right knee (principal)
CPT/HCPCS: 99213

== ENCOUNTER → 2024-07-12 09:29 | Outpatient (BNVA) | payer MEDICAID, SELFPAY | PROVIDERS: PCP Family Medicine; Visit Provider Physician Assistant | DX: M22.2X1 Patellofemoral disorders, right knee (principal) | CPT/HCPCS: 99212 ==

== ENCOUNTER 2024-08-29 10:01 | Outpatient (RCR) | payer MEDICAID, SELFPAY ==
--- NOTE | 2024-07-19 11:21 | MHC.PT.EP ---
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 Pt currently reports R knee pain which is constant in nature, exacerbated with prolonged standing, sitting, 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 Pt reports past history of being OOW for an extended period exhausting PFML leave last summer with a second time in April 2024 of being OOW x 6 weeks, past history of failed PT x 30 visits, and past history of previous knee injection with no relief. Xrays taken (-) acute injury. Pt would benefit from a global hip/knee/core stabilization program to improve deficits in muscle asymmetries. Today patient exhibits poor quadriceps strength with SLR, poor hip abduction strength bilaterally, weak hip extensors, and tight tight hamstrings. Post evaluation, we reviewed what he has been doing at home for a program and we discussed what to stop doing (exercises which gave him pain from previous PT offices). He was advised to initiate SLR into flexion (was doing but was doing improperly) along with initiation of seated/standing HS stretch. He was advised to stop performing quad stretches as he does not need them at this time (-) Hay testing. Pt was advised to wear knee brace as recommended per orthopedics office and use ice prn for relief. He did benefit from education on proper application of his knee brace. Pt will benefit from skilled PT services at a frequency of 2x/week x 4 weeks to address impairments, implement HEP, and restore functional mobility to resume PLOF. Frequency and Duration: The patient will be seen 2x/week x 4 weeks Short Term Goals: 1. Pt will initiate a HEP program. 2. Pt will demonstrate good strength during SLR on the R LE. 3. Pt will demonstrate improved HS length by 25%. 4. Pt will report 25% reduction in knee pain on the R LE. 5. Demonstrate functional squat 3:3 trials with good technique. Care Program Director Goals: 1. Pt will demonstrate strength in R knee 5/5. 2. Pt will demonstrate hip abduction strength to 5/5. 3. Pt will increase strength hip ext 5/5 bilaterally. 4. I HEP. 5. Stair negotiation reciprocally with good dynamic balance. 6. SLS to 10 seconds with good hip/pelvic stability Treatment Plan: Modalities to reduce pain, spasms and effusion. Manual therapy to restore motion and function. Therapeutic exercise to improve strength and flexibility. Neuromuscular re-education for posture and balance. Therapeutic activities to return to functional activities of daily living. Electronically signed by: Argelia Coy, PT, DPT Please sign and return to therapist. Thank you for your referral.
--- NOTE | 2024-08-23 10:39 | MHC.PT.OD ---
[facility] [place] Office [place] Office [place] Office [address] Nadeen Dodge [address] [phone] F: [phone] F: [phone] F: [phone] F: [phone] Physical Therapy Daily Note Diagnosis: PT eval and treat; M22.2X1 Patellofemoral disorders, R Knee PF syndrome, failed PT at [facility] date of referral 07/12/2024 by Domonique Lee [facility] Date of Surgery: N/A Date of Evaluation: 07/19/24 Date of Treatment: 08/23/24 Treatments to Date: Cancellations to Date: No Shows to Date: Authorized Visits: 8 Insurance End Date: Precautions/ Contraindications: Subjective: My knee hurts. Pain Score and Location: 4.5 Objective Flowsheet: Tests & Measures see eval Exercises Seated SCIFIT bike seat #12 for warm-up level x 15 minutes for warm-up with brace on level 4.0 Standing hip abduction with blue thera-band for 45 degrees squat combo standing 4 way box steps x 2 set 10R cues and mirror for feedback completed L>R and R>L, review of mechanics floor to waist and waist to shoulder with mechanics for lifting/reaching and technique with 8# med ball, education re: avoidance of locking out knee in standing and education for learning how increasing hip strength/abductor, strength will impact him, ice to R knee x 10 minutes at end of session, standing toe taps with 3 way opposite hip/toe x 2 sets 10R, standing resisted HS curls for mini squat x 2 sets 10R with cues for posterior pelvic tilt, review of standing toe taps and avoidance of knee hyperextension position, prone UE/raise over pball x 2 sets 10R, hooklying bridge with x 2 sets 10R over pball Discussed body mechanics and avoidance of shear forces on knee, squat mechanics education for back safety/knee safety pt has been shearing his knee with lifting/movement. Reviewed body mechanics/ golfer's lift/ good body mechanics for bending/lifting. Pt will benefit from ongoing cues/stability/reinforement of education. Trial of Dumont tape for medial patellar glide to assess response to support due to patient expressing skin irritation with posterior aspect of brace. Pt educated re: benefit in trying thin sleeve under knee brace to reduce skin irrittaion. Pt educated re: ongoing use of brace for work and activities as recommended per orthopedics. Modalities Assessment: 08/23/24; Pt has attended 8 session of PT to date, Pt has been educated re: knee/hip/core trunk stabilization activities with positive gains in core/proximal hip strength. Pt reports no pain with specific knee exercises but has flare of sx with repeated squatting/standing in the R knee when at work ([employer]) Upon review of body mechanics/lifting techniques it appears pt has been performing shear/twisting of R knee. At rest in static standing he has a lot of hyperextension and has been educated in ways to try and refrain from locking out his knee. Pt requires repeated education and carryover to avoid shear force during these lifting techniques. He has been using stabilizing brace with positive gains and has reported returning to 8 hours shifts (not every shift) but at start of care was only tolerant for 6 hour shifts per pt. He has obtained a physio-ball exercise for home program, notes good compliance with new exercises. Krystian has 1 appt remaining at this time. Pt was encouraged to call ortho office (obtained follow up for October 2024). He has been educatd that therapy will not make him painfree and that he should continue his strengthening exercises outside of PT/ upon completion of PT. Thank you for this referral 08/17/24:Pt expressing 30-40% improvement gain/reduction in pain in R knee since starting therapy. He has obtained an exercise physioball for home. Pt with excessive hyperextension of knee and has lack of awareness of this during CK[facility]. Pt has been compliant in hinged knee brace use however he benefits from ongoing strength/body mechanics to improve awareness of this motion during [facility]/work tasks. He has reported tolerance for longer work shifts averaging 7 hours lately. He has no upcoming appt with orthopedics at this time. Plan will be to taper frequency to 1x/week to allow ramp up of to I HEP. Pt educated that therapy exercises must continue upon DC of PT to make gains. 08/09/24: Pt benefitted from body mechanics education and support to reduce risk of knee injury and prevent back injury. Pt was educated re: to be mindful of not standing in R knee hyperextension and the benefit in strengthening the proximal hip/glutes. Pt verbalized fatigue with [facility] which emphasized these areas. Pt will continued PT 2x/week x 2 more weeks and then will downgrade to 1x/week x 2 weeks. He was given some foam padding to support the medial hinge of his R knee brace with (+) report of improvement/gain with activity. 08/07/24: Pt had poor awareness of body mechanics (has been shearing/twisting knee for lifting when reviewed this date. Pt benefitted from body mechanics for education to reduce force/shear in standing. 08/03/24: Pt progressing in hip and core stab program, reports some relief of padding out underneath medial support of knee brace. Pt making good progress towards working longer hours, completed 7-7.5 hour shifts. 07/26/24: Pt challenged with hip strengthening program. Pt encouraged to try to go without brace for sleep. Pt compliant with HEP program. 07/24/24: Positive early response to HS stretching program. Pt to research/ given information about correct size of physio-ball to order for home. Positive response to exercises in the office. Pt reproted being able to work for 6 hours yesterday (longest in a long time). We discussed benefit of stretching program during the day at work to reduce sx. 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 Pt currently reports R knee pain which is constant in nature, exacerbated with prolonged standing, sitting, 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 Pt reports past history of being OOW for an extended period exhausting PFML leave last summer with a second time in April 2024 of being OOW x 6 weeks, past history of failed PT x 30 visits, and past history of previous knee injection with no relief. Xrays taken (-) acute injury. Pt would benefit from a global hip/knee/core stabilization program to improve deficits in muscle asymmetries. Today patient exhibits poor quadriceps strength with SLR, poor hip abduction strength bilaterally, weak hip extensors, and tight tight hamstrings. Post evaluation, we reviewed what he has been doing at home for a program and we discussed what to stop doing (exercises which gave him pain from previous PT offices). He was advised to initiate SLR into flexion (was doing but was doing improperly) along with initiation of seated/standing HS stretch. He was advised to stop performing quad stretches as he does not need them at this time (-) Hay testing. Pt was advised to wear knee brace as recommended per orthopedics office and use ice prn for relief. He did benefit from education on proper application of his knee brace. Pt will benefit from skilled PT services at a frequency of 2x/week x 4 weeks to address impairments, implement HEP, and restore functional mobility to resume PLOF. PT Plan: Reassessment, transition to I HEP next session. Short Term Goals: 1. Pt will initiate a HEP program. 2. Pt will demonstrate good strength during SLR on the R LE. 3. Pt will demonstrate improved HS length by 25%. 4. Pt will report 25% reduction in knee pain on the R LE. 5. Demonstrate functional squat 3:3 trials with good technique. Custodial Goals: 1. Pt will demonstrate strength in R knee 5/5. 2. Pt will demonstrate hip abduction strength to 5/5. 3. Pt will increase strength hip ext 5/5 bilaterally. 4. I HEP. 5. Stair negotiation reciprocally with good dynamic balance. 6. SLS to 10 seconds with good hip/pelvic stability Electronically signed by: Argelia Coy, PT, DPT
== END 2024-10-30 07:20 | disposition home or self-care (01) ==
LOC: HO.PTS 10:01
PROVIDERS: PCP Family Medicine; Visit Provider Physician Assistant
DX: M22.2X1 Patellofemoral disorders, right knee (principal)
CPT/HCPCS: 97110; 97161; 97535

== ENCOUNTER 2024-10-19 08:35 | Outpatient (AMB) | payer MEDICAID, SELFPAY ==
--- NOTE | 2024-10-19 08:41 | A.OFFVIS_ITS ---
Intake Visit Reasons: OV-Right knee pain/follow up Intake Note: Krystian is a 33 year old male who presents today for a follow up of right knee pain. At his last visit he was fit for a knee brace and he was to follow up as needed. Today patient reports the knee brace is giving him relief and he has been doing some exercises at home. he mentions that he is still having pain in his whole knee. Utility Maintenance Worker Services: Utility Maintenance Worker Present (al([phone])) Allergies No Known Allergies Allergy (Verified 07/12/24 09:38) Medication List - Last Reconciled 10/19/24 by Disha Lee PA-C acetaminophen 500 mg PO Q6H PRN ibuprofen 800 mg PO Q8H PRN 30 days HPI HPI OV-Right knee pain/follow up: Details: 33-year-old gentleman returns to the office today for a follow-up on his right knee. He has been doing physical therapy and has made some improvements however he continues to have some discomfort along the medial aspect of the knee especially while he is working or climbing stairs. We have trialed cortisone injections with no significant relief. He has been using the patellar stabilizing brace which does provide relief however the supports on the brace are wearing out and causing him pain. 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 Review of Systems Const All systems reviewed & are unremarkable except as noted in HPI and below Physical Exam Const General: cooperative, healthy appearing, comfortable, no acute distress, well developed and alert Orientation/consciousness: patient oriented x3 HEENT Head: Yes normal to inspection, Yes normocephalic and Yes atraumatic Eyes General: appearance normal, both eyes and all related structures Resp Effort & Inspection: normal respiratory effort and able to speak in complete sentences Cardio Rate: regular rate Peripheral pulses: Peripheral pulses 2+ throughout GI Palpation (GI): Soft to palpation Skin Lesions: no lesions Rashes: no rashes Neuro General: patient oriented x3 Extrem Other: Right knee: Skin intact, no erythema or joint effusion. Tenderness along the medial joint line. Full ROM with crepitus. Positive Morgan?s. No ligamentous laxity. NVI. Assessment & Plan Assessment & Plan (1) Right patellofemoral syndrome: Code(s): M22.2X1 - Patellofemoral disorders, right knee Category: Medical Plan: We discussed the extent of his knee pain and I encouraged him to continue working on his HEP. I explained the pes planus can also contribute to his knee pain and we need to continue with conditioning type exercises to work on the posterior chain. He was fit for a new patellar stabilizing knee brace today. He inquired about meeting with Dr. Bowles to discuss further treatment options or recommendations. I did briefly discuss his case with Dr. Bowles who agreed he would see him to further evaluate whether he would be a surgical candidate or if there are other treatment options that would be beneficial for him. The patient is in agreement and will make an appointment with Dr. Bowles to discuss further. Medications: Refilled ibuprofen 800 mg PO Q8H PRN 90 tabs 3RF pain 30 days S52.209D - Unspecified fracture of shaft of unspecified ulna, subsequent encounter for closed fracture with routine healing Coding Level of Care Code Est Pt Level 3 (51409) Complex EM visit Add On G2211 Diagnoses Right patellofemoral syndrome M22.2X1
--- OUTSIDE RECORDS SUMMARY | 2024-10-19 08:46 | XMS_ITS | Encounter Summary ---
Author Organization [employer] Address [address] [facility] [address] [place] [address] Care Team Providers Care Well Flow Operator Name Role Phone Katey Becker MD Primary Care Provider [phone] Domonique Lee Unavailable Reason for Visit * Reason Onset Date Comments Appointment Request 10/04/2024 Encounter Details Date Type Department Care Team ([facility] st Contact Info) Description 10/04/2024 Telephone [facility] [address] [place], [place] [phone] Katey Becker MD [address] [place], [place] [phone] Appointment Request Social History Tobacco Use Types Packs/Day [...] t he electric, gas, oil or water [employer] threatened to shut off services in your [...] encounter Miscellaneous Notes * Telephone Encounter - Victor Manuel Greene - 10/04/2024 9:26 AM EDT Tc from pt calling in regards to recall letter for physical. Pressure Testing Technician attempted to schedule but was unable to find availability. Please contact pt at [phone]. documented in this encounter Plan of Treatment Upcoming Encounters Date Type Department Care Team (Late st Contact Info) Description 12/07/2024 10:30 AM EDT Office Visit [facility] [address] [place] [address] Katey Becker MD [address] [place] [address] documented as of this encounter Visit Diagnoses Not on filedocumented in this encounter Care Teams Well Flow Operator Relationship Specialty Start Date End Date Katey Becker MD [address] [place] [address] PCP - General Family Medicine 05/09/18 Domonique Lee PA [address] [place] [address] Orthopaedic Surgery 07/12/24 documented as of this encounter
== END 2024-10-19 09:12 | disposition home or self-care (01) ==
LOC: HO.HOS 08:36
PROVIDERS: PCP Family Medicine; Visit Provider Physician Assistant
DX: M22.2X1 Patellofemoral disorders, right knee (principal)
CPT/HCPCS: 99213

== ENCOUNTER → 2024-10-19 08:35 | Outpatient (BNVA) | payer MEDICAID, SELFPAY | PROVIDERS: PCP Family Medicine; Visit Provider Physician Assistant | DX: M22.2X1 Patellofemoral disorders, right knee (principal); M25.561 Pain in right knee | CPT/HCPCS: 99212 ==

== ENCOUNTER 2024-12-06 08:51 | Outpatient (AMB) | payer MEDICAID, SELFPAY ==
[2024-12-06 08:53] VITALS: BMI 23.0
--- NOTE | 2024-12-06 08:53 | MHC.OFFVIS ---
Vital Signs 12/06/24 08:53 Height 5 ft 11 in Weight 165 lb BMI 23.0 Intake Visit Reasons: OV-Right knee, Discuss further options Intake Note: Krystian is a 34 year old male who presents today for a follow up of his right knee. Patient reports increased pain with walking, pain is felt in the anterior aspect of the knee. Hears cracking noises. He was previously seen with Disha Lee who provided him with an injection administered on 02/09/2024 which did not help. A patella stabilizing brace was fit, and referred him to discuss further treatment options. Patient reports pain is felt in the medial aspect of the knee. He states pain is limiting his ability to work. 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 Patient reports increased pain with walking, pain is felt in the anterior aspect of the knee. Hears cracking noises. He was previously seen with Disha Lee who provided him with an injection administered on 02/09/2024 which did not help. A patella stabilizing brace was fit, and referred him to discuss further treatment options. Patient reports pain is felt in the medial aspect of the knee. He states pain is limiting his ability to work. His pain localizes to the anteromedial aspect of the right tibial plateau in the pes anserinus region. He states he occasionally has lateral patellofemoral pain but this is after a long day at work. He wears a lateral bolster brace. 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 He has a lax patella with no retropatellar tenderness to palpation. There is no effusion. I can reproduce pain over the pes anserinus bursa. Otherwise unremarkable exam. Results Reviewed Results Reviewed: I personally reviewed the MR images. 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 I discussed treatment options for him which include pes anserinus injections and physical therapy. I also would recommend changing the brace because he is wearing a lateral bolster brace but he states he likes the brace, does not want injections but is willing to try physical therapy. A prescription for that was written. No surgical intervention of warranted. Orders: Orders PT Evaluation and Treatment Today M70.50 - Other bursitis of knee, unspecified knee Coding Level of Care Code Est Pt Level 3 (98256) Diagnoses Pes anserinus bursitis M70.50
--- OUTSIDE RECORDS SUMMARY | 2024-12-06 09:09 | XMS_ITS | Encounter Summary ---
Author Organization [employer] Address [address] [place] [address] Care Team Providers Care Rubber Curer Name Role Phone Katey Becker MD Primary Care Provider [phone] Domonique Lee Unavailable Reason for Visit * Reason Onset Date Comments Appointment Request 10/04/2024 Encounter Details Date Type Department Care Team ([facility] st Contact Info) Description 10/04/2024 Telephone [facility] MEDICINE [address] [place], [place] [phone] Katey Becker MD [address] [place], [place] [phone] Appointment Request Social History Tobacco Use Types [...] t he electric, gas, oil or water [employer] threatened to shut off services in your [...] in regards to recall letter for physical. [employer] attempted to schedule but was unable to find availability. Please contact pt at [phone]. documented in this encounter Plan of Treatment Upcoming Encounters Date Type Department Care Team (Late st Contact Info) Description 12/07/2024 10:30 AM EDT Office Visit [facility] MEDICINE [address] [place] [address] Katey Becker MD [address] [place] [address] documented as of this encounter Visit Diagnoses Not on filedocumented in this encounter Care Teams Rubber Curer Relationship Specialty Start Date End Date Katey Becker MD [address] [place] [address] PCP - General Family Medicine 05/09/18 Domonique Lee PA [address] [place] [address] Orthopaedic Surgery 07/12/24 documented as of this encounter
== END 2024-12-06 09:24 | disposition home or self-care (01) ==
LOC: HO.HOS 08:52
PROVIDERS: PCP Family Medicine; Visit Provider Orthopaedic Surgery
DX: M70.51 Other bursitis of knee, right knee (principal)
CPT/HCPCS: 99213

== ENCOUNTER → 2024-12-06 08:51 | Outpatient (BNVA) | payer MEDICAID, SELFPAY | PROVIDERS: PCP Family Medicine; Visit Provider Orthopaedic Surgery | DX: M70.51 Other bursitis of knee, right knee (principal) | CPT/HCPCS: 99212 ==